=== PATIENT | male | born 1965 | race Caucasian/White ===

== ENCOUNTER 2016-11-07 08:03 | Emergency (ER) | payer OTHER ==
[~2016-11-07] VITALS: Ht 170.2 cm; Wt 88.5 kg
[2016-11-07 08:05] VITALS: BP 154/85; PULSE 63; RESP 14; TEMP 98.3; O2SAT 99
[2016-11-07] MEDS ORDERED: CIPR0.3S LEFT EAR (08:20)
--- NOTE | 2016-11-07 08:23 | PD ---
HPI Chief Complaint: ENT Complaint Time Seen by Provider: 08:20 Travel History International Travel<30 days: No Contact w/Intl Traveler<30days: No Traveled to known affect area: No History of Present Illness HPI 51-year-old Afro-[place] male presents the emergency Department with increasing pain to the left ear over the past 4 days. Patient has been using Advil and 50-50 hydrogen peroxide and water with worsening symptoms. Patient states the pain now is aggravated by eating. Patient denies drainage, fever, chills, headache, sinus congestion, or postnasal drip. He denies dental pain at this time. Pain is about an 8 out of 10. He has no other constitutional symptoms. He has no known drug allergies. [facility] Social History Alcohol Use: Yes Tobacco Use: No Substance Use: No Allergies-Medications (Allergen,Severity, Reaction): Coded Allergies: No Known Allergies (Unverified , 11/07/16) Reported Meds & Prescriptions Reported Meds & Active Scripts Active Ciprodex Otic Drops (Ciprofloxacin-Dexamethasone Otic Drops) 0.3-0.1% Susp 4 Drop LEFT EAR BID Review of Systems Except as stated in HPI: all other systems reviewed are Neg General / Constitutional: No: Fever Eyes: No: Visual changes HENT: Positive: Congestion, Earache, No: Headaches, Vertigo, Lightheadedness, Sore Throat, Rhinitis, Rhinorrhea, Nosebleed, Neck Stiffness, Neck Pain, Ear Discharge Cardiovascular: No: Chest Pain or Discomfort Respiratory: No: Cough, Shortness of Breath Gastrointestinal: No: Abdominal Pain Genitourinary: No: Dysuria Musculoskeletal: No: Pain Skin: No Rash Neurologic: No: Weakness Psychiatric: No: Depression Endocrine: No: Polydipsia Hematologic/Lymphatic: No: Easy Bruising Physical Exam Narrative GENERAL: Patient appears in mild distress. SKIN: Warm and dry. Normal color. Normal turgor. HEAD: Atraumatic. Normocephalic. EYES: Pupils equal and round. No scleral icterus. No injection or drainage. ENT: No nasal bleeding or discharge. Mucous membranes pink and moist. Patient has discomfort with motion of the left auricle. Left ear canal appears somewhat swollen with yellowish green exudate. The TM itself does not appear significantly injected or dull. The right TM and ear canal are normal. Pharynx is clear. Airway is patent. No significant lymphadenopathy or injection. The patient is tenderness in the preauricular node on the left. There is no sign of dental abscess. NECK: Trachea midline. Supple nontender without lymphadenopathy. CARDIOVASCULAR: Regular rate and rhythm. RESPIRATORY: No accessory muscle use. Clear to auscultation. Breath sounds equal bilaterally. MUSCULOSKELETAL: Extremities without clubbing, cyanosis, or edema. No obvious deformities. NEUROLOGICAL: Awake and alert. No obvious cranial nerve deficits. Motor grossly within normal limits. Five out of 5 muscle strength in the arms and legs. Normal speech. PSYCHIATRIC: Appropriate mood and affect; insight and judgment normal. Data Data Last Documented VS Vital Signs Date Time Temp Pulse Resp B/P Pulse Ox O2 Delivery O2 Flow Rate FiO2 11/07/16 08:05 98.3 63 14 154/85 99 MDM Medical Decision Making Medical Screen Exam Complete: Yes Emergency Medical Condition: Yes Differential Diagnosis Left ear pain. TMJ. Otitis externa. Otitis media. Narrative Course Patient is felt to have an external otitis. Patient was treated with Ciprodex drops 4 drops to the left ear twice a day 10 days. Patient is to use [id number]-[id number] ibuprofen and Tylenol as discussed. Patient is to use warm compresses and hairdryer as discussed. Oral antibiotics or not felt necessary at this time. Patient follow up if symptoms do not improve or worsen as discussed. Diagnosis Primary Impression: Otitis externa, left Qualified Code: H60.332 - Acute swimmer's ear of left side Referrals: Primary Care Physician Patient Instructions: General Instructions, Otitis Externa (ED) Additional Instructions: Patient is felt to have an external otitis. Patient was treated with Ciprodex drops 4 drops to the left ear twice a day 10 days. Patient is to use [id number] ibuprofen and Tylenol as discussed. Patient is to use warm compresses and hairdryer as discussed. Oral antibiotics or not felt necessary at this time. Patient follow up if symptoms do not improve or worsen as discussed. Med/Other Pt SpecificInfo: Prescription(s) given Scripts Ciprofloxacin-Dexamethasone Otic Drops (Ciprodex Otic Drops)0.3-0.1% Susp4 Drop LEFT EAR BID #1 BOTTLE Ref 0 Prov:Makayla Rosa MD 11/07/16 Disposition: 01 DISCHARGE HOME Condition: Stable Zohaib Hernandez Nov 07, 2016 08:22
== END 2016-11-07 08:48 | disposition home or self-care (01) ==
LOC: NEPK 08:03
DX: H60.332 Swimmer's ear, left ear (principal)
CPT/HCPCS: 99283